=== PATIENT | female | born 1935 | race Native Hawaiian/Other Pacific Islander ===

== ENCOUNTER 2016-09-09 07:55 | Outpatient (CLI) | payer OTHER, BC ==
[~2016-09-09 07:55] MED LIST: ATEN25TA21 PO; CLARITIN10 MG PO; HYZAAR1 TA2 PO; ROSU10TA PO; XARELTO20 MG OR
[2016-09-09 08:41] LABS: PLATELET COUNT 135 K/uL (152-353)
[2016-09-09 09:03] LABS: POTASSIUM 3.8 mmol/L (3.6-5.2); SODIUM 141 mmol/L (136-145)
== END 2016-09-09 09:00 | disposition home or self-care (01) ==
LOC: LABW 07:55
PROVIDERS: Internal Medicine
DX: Z00.00 Encounter for general adult medical examination without abnormal findings (principal); I10 Essential (primary) hypertension; E78.4 Other hyperlipidemia; Z79.899 Other long term (current) drug therapy; R73.01 Impaired fasting glucose; I48.91 Unspecified atrial fibrillation; Z51.81 Encounter for therapeutic drug level monitoring
CPT/HCPCS: 36415; 80053; 80061; 82043; 82570; 83036; 84443; 85027; 86140

== ENCOUNTER 2016-12-09 21:15 | Observation (INO) | payer OTHER, BC ==
[~2016-12-09] VITALS: Ht 165.1 cm; Wt 65.8 kg
[2016-12-09 21:30] VITALS: BP 214/71; TEMP 98.2
[2016-12-09 21:51] VITALS: BP 220/79
[2016-12-09 22:01] VITALS: BP 195/74
[2016-12-09 22:41] LABS: PLATELET COUNT 154 K/uL (152-353)
[2016-12-09 23:10] VITALS: BP 156/68
[2016-12-09 23:15] LABS: POTASSIUM 3.3 mmol/L (3.6-5.2); SODIUM 140 mmol/L (136-145)
--- NOTE | 2016-12-10 00:24 | NUR ---
0024 - ATTEMPTED TO START IV POTASSIUM AT THIS TIME. FLUSHED 22G IV TO THE RIGHT HAND. RESISTANCE MET AND IV WOULD NOT FLUSH. ATTEMPTED TO GAIN NEW IV X2 STICKS. IV ATTEMPTS UNSUCCESFUL. PT REFUSED TO BE STUCK AGAIN. 0055 - NOTIFIED DR. SERRATO OF PT'S IV STATUS AND REFUSAL TO BE STUCK AGAIN. PO POTASSIUM ORDERED AT THIS TIME. NO FURTHER ORDERS WERE GIVEN.
[2016-12-10 01:33] VITALS: BP 145/51; TEMP 97.7; Ht 165.1 cm; Wt 65.8 kg
[2016-12-10 04:00] VITALS: BP 134/41; BP 147/66; TEMP 97.9; TEMP 98
[2016-12-10 08:00] VITALS: BP 132/54; TEMP 97.8
[2016-12-10 08:25] LABS: PARTIAL THROMBOPLASTIN TIME 39.3 SECONDS (24.5-33.6)
[2016-12-10 12:00] VITALS: BP 128/42; TEMP 97.7
[2016-12-10 16:00] VITALS: BP 157/44; TEMP 98.2
--- NOTE | 2016-12-10 19:09 | NUR ---
@ 1848 PT DISCHARGED HOME, IV D/C'D TIP INTACT, NO REDNESS, SWELLING OR EDEMA NOTED, PT AMBULATED OUT TO PERSONAL VEHICLE, NAD NOTED.
== END 2016-12-10 18:55 | disposition home or self-care (01) ==
LOC: ED 21:15 → MED/SURG 23:50
PROVIDERS: ADMIT Family Medicine
DX: I16.0 Hypertensive urgency (principal); F41.8 Other specified anxiety disorders; R51 Headache; I10 Essential (primary) hypertension
CPT/HCPCS: 36415; 36591; 80048; 81000; 82550; 84484; 85027; 85610; 85730; 93005; 96374; 99220; 99283; 99284; G0378; J1650; J1885

== ENCOUNTER 2016-12-10 22:48 | Emergency (ER) | payer OTHER, BC ==
[~2016-12-10] VITALS: Ht 165.1 cm; Wt 65.8 kg
[2016-12-11 01:19] VITALS: BP 176/53; TEMP 97.8
== END 2016-12-11 01:19 | disposition home or self-care (01) ==
LOC: ED 22:48
DX: I10 Essential (primary) hypertension (principal)
CPT/HCPCS: 99283

== ENCOUNTER 2017-09-18 08:39 | Outpatient (CLI) | payer OTHER, BC ==
[2017-09-18 09:08] LABS: PLATELET COUNT 151 K/uL (152-353)
[2017-09-18 09:13] LABS: POTASSIUM 4.1 mmol/L (3.6-5.2)
== END 2017-09-18 22:09 | disposition home or self-care (01) ==
LOC: LABW 08:39
PROVIDERS: Internal Medicine
DX: E78.5 Hyperlipidemia, unspecified (principal); I10 Essential (primary) hypertension; Z79.899 Other long term (current) drug therapy
CPT/HCPCS: 36415; 80053; 80061; 83036; 84443; 85027

== ENCOUNTER 2018-07-26 14:26 | Outpatient (CLI) | payer OTHER, BC ==
[2018-07-26 14:54] LABS: PLATELET COUNT 221 K/uL (152-353)
[2018-07-26 15:27] LABS: POTASSIUM 3.8 mmol/L (3.6-5.2)
== END 2018-07-26 19:55 | disposition home or self-care (01) ==
LOC: LABW 14:26
PROVIDERS: Internal Medicine
DX: R53.83 Other fatigue (principal)
CPT/HCPCS: 36416; 80053; 85027

== ENCOUNTER 2019-06-07 13:24 | Outpatient (CLI) | payer OTHER, BC | END 2019-06-07 20:15 | disposition home or self-care (01) | LOC: RAD 13:24 | DX: M25.561 Pain in right knee (principal) ==

== ENCOUNTER 2021-09-03 15:13 | Outpatient (CLI) | payer BC | END 2021-09-03 20:30 | disposition home or self-care (01) | LOC: RAD 15:13 | PROVIDERS: ATTEND Physician Assistant | DX: M25.561 Pain in right knee (principal) ==

== ENCOUNTER 2022-06-01 08:59 | Outpatient (CLI) | payer BC | END 2022-06-01 19:25 | disposition home or self-care (01) | LOC: RAD 08:59 | PROVIDERS: ATTEND Internal Medicine | DX: Z13.820 Encounter for screening for osteoporosis (principal); N95.8 Other specified menopausal and perimenopausal disorders ==